=== PATIENT | female | born 1970 | race Two or more races ===

== ENCOUNTER 2019-07-11 10:01 | Outpatient (CLI) | payer OTHER ==
[~2019-07-11 10:01] MED LIST: CATAFLAM50 MG PO; CLARITIN10 MG PO; FLONASE16 GM NS; TIZANIDINE HCL4 MG PO; ZITHROMAX200 MG PO; ZYRTEC10 MG PO
== END 2019-07-11 10:17 | disposition home or self-care (01) ==
LOC: MAMO-SONO 10:01
DX: Z12.31 Encounter for screening mammogram for malignant neoplasm of breast (principal); Z87.898 Personal history of other specified conditions; Z12.39 Encounter for other screening for malignant neoplasm of breast

== ENCOUNTER 2019-11-26 01:00 | Outpatient (CLI) | payer OTHER | END 2019-11-26 15:00 | disposition home or self-care (01) | LOC: PPH VACUNA 01:00 | DX: Z23 Encounter for immunization (principal) ==

== ENCOUNTER → 2020-02-27 08:00 | Outpatient (CLI) | payer OTHER | END | disposition home or self-care (01) | LOC: PPH VACUNA 08:00 | DX: Z23 Encounter for immunization (principal) ==

== ENCOUNTER → 2020-06-19 07:38 | Outpatient (CLI) | payer OTHER | END | disposition home or self-care (01) | LOC: LAB 07:38 | PROVIDERS: ATTEND Internal Medicine Gastroenterology | DX: K59.00 Constipation, unspecified (principal); E08.40 Diabetes mellitus due to underlying condition with diabetic neuropathy, unspecified; Z80.0 Family history of malignant neoplasm of digestive organs ==

== ENCOUNTER 2020-06-24 07:39 | Outpatient (CLI) | payer OTHER | END 2020-06-25 13:59 | disposition home or self-care (01) | LOC: TOM 07:39 | PROVIDERS: ATTEND Internal Medicine Gastroenterology | DX: K59.00 Constipation, unspecified (principal); Z80.0 Family history of malignant neoplasm of digestive organs ==

== ENCOUNTER 2020-07-07 12:58 | Outpatient (CLI) | payer OTHER | END 2020-07-07 15:56 | disposition home or self-care (01) | LOC: LAB 12:58 | PROVIDERS: ATTEND Internal Medicine Gastroenterology | DX: R05 Cough (principal); R50.9 Fever, unspecified; Z20.828 Contact with and (suspected) exposure to other viral communicable diseases ==

== ENCOUNTER 2020-10-21 08:22 | Outpatient (CLI) | payer OTHER | END 2020-10-21 15:53 | disposition home or self-care (01) | LOC: LAB 08:22 | PROVIDERS: ATTEND Internal Medicine Gastroenterology | DX: B99.8 Other infectious disease (principal) ==

== ENCOUNTER → 2020-12-09 | Outpatient (CLI) | payer OTHER | END | disposition home or self-care (01) | LOC: PPH VACUNA 08:00 | PROVIDERS: ATTEND Emergency Medicine Pediatric Emergency Medicine | DX: Z23 Encounter for immunization (principal) ==

== ENCOUNTER 2020-12-15 08:00 | Outpatient (CLI) | payer OTHER | END 2020-12-15 08:30 | disposition home or self-care (01) | LOC: PPH VACUNA 08:00 | PROVIDERS: ATTEND Emergency Medicine Pediatric Emergency Medicine | DX: Z23 Encounter for immunization (principal) ==

== ENCOUNTER 2021-02-10 07:51 | Outpatient (CLI) | payer OTHER | END 2021-02-10 07:52 | disposition home or self-care (01) | LOC: LAB 07:51 | PROVIDERS: ATTEND Internal Medicine Endocrinology, Diabetes & Metabolism | DX: E11.65 Type 2 diabetes mellitus with hyperglycemia (principal); E78.00 Pure hypercholesterolemia, unspecified ==

== ENCOUNTER 2021-07-02 12:23 | Outpatient (CLI) | payer OTHER | END 2021-07-02 12:27 | disposition home or self-care (01) | LOC: LAB 12:23 | PROVIDERS: ATTEND Internal Medicine | DX: Z20.828 Contact with and (suspected) exposure to other viral communicable diseases (principal) ==

== ENCOUNTER 2021-08-11 10:28 | Outpatient (CLI) | payer OTHER | END 2021-08-11 10:35 | disposition home or self-care (01) | LOC: LAB 10:28 | DX: U07.1 COVID-19 (principal); Z20.822 Contact with and (suspected) exposure to COVID-19 ==

== ENCOUNTER 2021-11-10 09:33 | Outpatient (CLI) | payer OTHER | END 2021-11-10 09:38 | disposition home or self-care (01) | LOC: PPH VACUNA 09:33 | PROVIDERS: ATTEND Emergency Medicine Pediatric Emergency Medicine | DX: Z23 Encounter for immunization (principal) ==

== ENCOUNTER 2022-04-11 12:59 | Outpatient (CLI) | payer OTHER | END 2022-04-11 13:08 | disposition home or self-care (01) | LOC: LAB 12:59 | PROVIDERS: ATTEND Internal Medicine | DX: U07.1 COVID-19 (principal); B34.1 Enterovirus infection, unspecified ==

== ENCOUNTER 2022-05-18 13:46 | Outpatient (CLI) | payer OTHER | END 2022-05-18 13:54 | disposition home or self-care (01) | LOC: TOM 13:46 | PROVIDERS: ATTEND Otolaryngology | DX: J32.0 Chronic maxillary sinusitis (principal) ==

== ENCOUNTER 2022-07-15 12:01 | Outpatient (CLI) | payer OTHER | END 2022-07-15 12:05 | disposition home or self-care (01) | LOC: RAD 12:01 | PROVIDERS: ATTEND Internal Medicine Cardiovascular Disease | DX: M79.671 Pain in right foot (principal); M77.8 Other enthesopathies, not elsewhere classified ==

== ENCOUNTER 2022-12-02 09:42 | Outpatient (CLI) | payer OTHER | END 2022-12-02 09:52 | disposition home or self-care (01) | LOC: PPH VACUNA 09:42 | PROVIDERS: ATTEND Emergency Medicine Pediatric Emergency Medicine | DX: Z23 Encounter for immunization (principal) | CPT/HCPCS: 90686; G0008 ==

== ENCOUNTER 2023-05-12 07:33 | Outpatient (CLI) | payer OTHER ==
[~2023-05-12 07:33] MED LIST changes: +DICLOFENAC POTA50 MG PO
[2023-05-12 08:16] LABS: HEMATOCRIT 37.1 % (36.0-45.00); HEMOGLOBIN 12.5 g/dL (12.0-15.00); MEAN CELL VOLUME 81.4 fL (80.00-100.00); MEAN CORPUSCULAR HEMOGLOBIN 27.5 pg (27.00-32.0); MEAN CORPUSCULAR HGB CONC 33.8 g/dl (32.0-36.0); PLATELET COUNT 166 K/uL (150-450); RED BLOOD COUNT 4.56 M/uL (4.00-6.00); RED CELL DISTRIBUTION WIDTH 14.3 % (11.5-14.5)
[2023-05-12 08:59] LABS: BILIRUBIN TOTAL 0.43 mg/dL (0.3-1.2); CALCIUM 9.3 mg/dL (8.5-10.1); CHOL HDL RATIO 3.3 (0-5.0); CREATININE SERUM 0.69 mg/dL (0.55-1.02); GFR 89.34; GLOBULINA 2.9 G/DL (2.4-3.5); POTASSIUM 3.78 mEq/L (3.5-5.1); TOTAL PROTEIN 6.9 gm/dL (6.4-8.2); TSH 3.74 uIU/mL (0.358-3.74)
== END 2023-05-12 11:32 | disposition home or self-care (01) ==
LOC: LAB 07:33
PROVIDERS: ATTEND Internal Medicine Cardiovascular Disease
DX: E11.9 Type 2 diabetes mellitus without complications (principal); E78.1 Pure hyperglyceridemia; E03.9 Hypothyroidism, unspecified

== ENCOUNTER 2023-12-06 08:16 | Outpatient (CLI) | payer OTHER | END 2023-12-06 14:10 | disposition home or self-care (01) | LOC: LAB 08:16 | DX: A64 Unspecified sexually transmitted disease (principal); B18.9 Chronic viral hepatitis, unspecified ==

== ENCOUNTER 2023-12-14 08:50 | Outpatient (CLI) | payer OTHER | END 2023-12-14 09:00 | disposition home or self-care (01) | LOC: PPH VACUNA 08:50 | PROVIDERS: ATTEND Emergency Medicine Pediatric Emergency Medicine | DX: Z23 Encounter for immunization (principal) ==

== ENCOUNTER 2024-04-30 07:07 | Outpatient (CLI) | payer OTHER ==
[2024-04-30 07:35] LABS: URINE APPEARANCE Clear; URINE BILIRRUBIN Negative (NEGATIVE); URINE BLOOD Negative; URINE COLOR Dark Yellow; URINE GLUCOSE Negative (NEGATIVE); URINE KETONE Negative (NEGATIVE); URINE LEUKOCYTE Negative; URINE NITRATE Negative; URINE PROTEIN Negative (NEGATIVE); URINE UROBILINOGEN 0.2 E.U./dl
[2024-04-30 07:39] LABS: URINE BACTERIA 144.3 uL (0.0-1933); URINE EPITHELIAL CELLS 4.9 uL (0.0-38.8); URINE RBC 2.9 uL (0.0-20.8)
[2024-04-30 07:45] LABS: HEMOGLOBIN 12.1 g/dL (12.0-15.00); MEAN CELL VOLUME 77.8 fL (80.00-100.00); MEAN CORPUSCULAR HGB CONC 33.5 g/dl (32.0-36.0); PLATELET COUNT 174 K/uL (150-450); RED BLOOD COUNT 4.64 M/uL (4.00-6.00)
[2024-04-30 08:06] LABS: RED CELL DISTRIBUTION WIDTH 17.6 % (11.5-14.5)
[2024-04-30 08:09] LABS: URINE WBC 1.4 uL (0.0-23.2)
[2024-04-30 08:42] LABS: ALBUMIN 3.9 gm/dL (3.4-5.0); BILIRUBIN TOTAL 0.35 mg/dL (0.3-1.2); CALCIUM 9.2 mg/dL (8.5-10.1); CHOL HDL RATIO 3.4 (0-5.0); CREATININE SERUM 0.74 mg/dL (0.55-1.02); GFR 82.09; GLOBULINA 3.1 G/DL (2.4-3.5); POTASSIUM 3.87 mEq/L (3.5-5.1); TSH 2.88 uIU/mL (0.358-3.74)
== END 2024-04-30 09:14 | disposition home or self-care (01) ==
LOC: LAB 07:07
PROVIDERS: ATTEND Internal Medicine
DX: I11.9 Hypertensive heart disease without heart failure (principal); E78.5 Hyperlipidemia, unspecified; E11.9 Type 2 diabetes mellitus without complications; E03.9 Hypothyroidism, unspecified

== ENCOUNTER 2024-05-31 08:04 | Outpatient (CLI) | payer OTHER | END 2024-05-31 09:52 | disposition home or self-care (01) | LOC: TOM 08:04 | PROVIDERS: ATTEND Internal Medicine Gastroenterology | DX: R10.13 Epigastric pain (principal); Z80.0 Family history of malignant neoplasm of digestive organs ==

== ENCOUNTER 2024-11-19 14:19 | Outpatient (CLI) | payer OTHER ==
[2024-11-22 05:07] LABS: HEPATITIS A ANTIBODY IGG Negative (Negative); HEPATITIS B SURFACE ANTIBODY Non Reactive (.); HEPATITIS C VIRUS ANTIBODY Non Reactive (Non Reactive)
== END 2024-11-19 15:10 | disposition home or self-care (01) ==
LOC: LAB 14:19
DX: A64 Unspecified sexually transmitted disease (principal); B19.9 Unspecified viral hepatitis without hepatic coma

== ENCOUNTER 2025-02-24 09:35 | Outpatient (CLI) | payer OTHER ==
[2025-02-24 10:07] LABS: BASO % 0.4 % (0.1-1.2); EOS # 0.07 (0.04-0.54); EOS % 1.0 % (0.7-7.0); LYMPH # 1.48 (1.18-3.74); LYMPH % 21.5 % (19.3-53.1); MEAN PLATELET VOLUME 12.40 fl (9.4-12.4); MONO # 1.25 (0.24-0.82); NEUT # 4.02 (1.56-6.13); NEUT % 58.6 % (34.0-71.1); RED CELL DISTRIBUTION WIDTH 13.9 % (11.6-14.4)
[2025-02-24 10:13] LABS: MONO % 18.2 % (4.7-12.5)
[2025-02-24 10:24] LABS: COVID-19 AG NEGATIVE (NEGATIVE)
[2025-02-24 11:00] LABS: ALT/SGPT 33.0 U/L (12-78); AST/SGOT 19.0 U/L (15-37); BILIRUBIN TOTAL 0.4 mg/dL (0.3-1.2); BUN CREA RATIO 24.0 (7.0-25.0); CREATININE SERUM 0.76 mg/dL (0.55-1.02); GFR 79.31; GLOBULINA 3.6 G/DL (2.4-3.5); GLUCOSE FASTING 116.0 mg/dL (65-100); OSMOLALITY SERUM 277.0 MOSM/KG (275-295)
[2025-02-24 12:08] LABS: MYCOPLASMA PNEUMONIAE IGM NON REACTIVE (NO REACTIVE)
== END 2025-02-24 09:55 | disposition home or self-care (01) ==
LOC: LAB 09:35
DX: J06.9 Acute upper respiratory infection, unspecified (principal)